=== PATIENT | male | born 1960 | race Two or more races ===

== ENCOUNTER 2024-10-11 18:26 | Emergency (ER) | payer SELFPAY ==
[2024-10-11 18:28] VITALS: BP 156/82; PULSE 84; RESP 16; TEMP 36.8; O2SAT 99; BMI 19.3
== END 2024-10-11 19:30 | disposition home or self-care (01) ==
LOC: ED 19:19
PROVIDERS: Emergency Provider Emergency Medicine; Visit Provider Emergency Medicine
DX: B35.3 Tinea pedis (principal); L20.9 Atopic dermatitis, unspecified; F17.210 Nicotine dependence, cigarettes, uncomplicated; F17.290 Nicotine dependence, other tobacco product, uncomplicated; F12.90 Cannabis use, unspecified, uncomplicated
CPT/HCPCS: 99284